=== PATIENT | female | born 1960 | race Caucasian/White ===

== ENCOUNTER → 2017-06-03 | Outpatient (CLI) | payer OTHER | END | disposition home or self-care (01) | LOC: PCVCIMAG 11:36 | DX: K21.9 Gastro-esophageal reflux disease without esophagitis (principal); R06.09 Other forms of dyspnea; E78.5 Hyperlipidemia, unspecified; I71.03 Dissection of thoracoabdominal aorta; Z79.899 Other long term (current) drug therapy; Z79.82 Long term (current) use of aspirin; Z87.891 Personal history of nicotine dependence | CPT/HCPCS: 80061; 93005; 93325; 93351; G0463 ==

== ENCOUNTER → 2017-09-02 | Outpatient (CLI) | payer OTHER | END | disposition home or self-care (01) | LOC: PCVCIMAG 14:07 | DX: I08.3 Combined rheumatic disorders of mitral, aortic and tricuspid valves (principal); I10 Essential (primary) hypertension; E78.5 Hyperlipidemia, unspecified; Z98.890 Other specified postprocedural states; Z86.79 Personal history of other diseases of the circulatory system; Z79.899 Other long term (current) drug therapy; Z79.82 Long term (current) use of aspirin; Z87.891 Personal history of nicotine dependence | CPT/HCPCS: 36415; 93005; 93306; G0463 ==

== ENCOUNTER → 2018-12-01 | Outpatient (CLI) | payer OTHER ==
--- NOTE | 2018-12-01 09:49 | PCVCIMAG ---
APPROVED REPORT Study performed: 12/01/2018 08:25:17 EXAM: Comprehensive 2D, Doppler, and color-flow Echocardiogram Patient Location: Echo lab Status: routine BSA: 1.90 HR: 68 bpmBP: 150/62 mmHg Rhythm: NSR Other Information Study Quality: Adequate Indications aortic insufficiency, hx aortic dissection repair, mitral regurgitation 2D Dimensions IVSd: 11.06 (7-11mm) LVDd: 46.97 mm PWd: 9.77 (7-11mm)Ascending Ao: 40.07 (22-36mm) LVDs: 34.72 (25-40mm) Left Atrium: 38.98 (27-40mm) Aortic Root: 37.27 mm LV Single Plane 4CH: 66.64 % LV Single Plane 2CH: 63.74 % Biplane EF: 66.2 % Volumes Left Atrial Volume (Systole) Single Plane 4CH: 77.60 mLSingle Plane 2CH: 94.72 mL LA ESV Index: 45.00 mL/m2 Aortic Valve AoV Peak Rupesh.: 2.14 m/s AO Peak Gr.: 18.35 mmHgLVOT Max P.61 mmHg LVOT Max V: 1.07 m/s AI Vmax: 5.07 m/s AI [place]: 4.39 m/s2 AI PHT: 335.75 ms Mitral Valve E/A Ratio: 0.8 MV Decel. Time: 243.95 ms MV E Max Rupesh.: 0.50 m/s MV A Rupesh.: 0.64 m/s IVRT: 141.87 ms Pulmonary Valve PV Peak Rupesh.: 0.89 m/sPV Peak Gr.: 3.14 mmHg Pulmonary Vein P Vein S: 0.37 m/sP Vein A: 0.71 m/s P Vein D: 0.60 m/sP Vein A Dur.: 173.0 msec P Vein S/D Ratio: 0.62 Tricuspid Valve TR Peak Rupesh.: 2.75 m/s TR Peak Gr.: 30.25 mmHg TV Vmax: 0.44 m/s Left Ventricle The left ventricle is normal size. There is normal LV segmental wall motion. There is normal left ventricular wall thickness. Left ventricular systolic function is normal. The left ventricular ejection fraction is within the normal range. LVEF is 60-65%. Grade I - abnormal relaxation pattern. Right Ventricle The right ventricle is normal size. The right ventricular systolic function is normal. Atria Left atrium is moderately dilated. The right atrium size is normal. Aortic Valve The aortic valve is normal in structure. Moderate aortic regurgitation. There is no aortic valvular stenosis. Mitral Valve The mitral valve is normal in structure. Mild mitral regurgitation. No evidence of mitral valve stenosis. Tricuspid Valve The tricuspid valve is normal in structure. Mild tricuspid regurgitation with PAP of 37 mmHg. Pulmonic Valve The pulmonary valve is normal in structure. There is mild pulmonic valvular regurgitation. Great Vessels The aortic root is normal in size. The ascending aorta is borderline dilated to 4.0 cm. IVC is normal in size and collapses >50% with inspiration. Pericardium There is no pericardial effusion. There is no pleural effusion. <Conclusion> The left ventricle is normal size. There is normal left ventricular wall thickness. Left ventricular systolic function is normal. Grade I - abnormal relaxation pattern. The right ventricle is normal size. Left atrium is moderately dilated. The right atrium size is normal. The aortic valve is normal in structure. Moderate aortic regurgitation. Mild mitral regurgitation. Mild tricuspid regurgitation with PAP of 37 mmHg. The ascending aorta is borderline dilated to 4.0 cm.
== END | disposition home or self-care (01) ==
LOC: PCVCIMAG 08:43
PROVIDERS: ATTEND Internal Medicine Cardiovascular Disease
DX: I08.3 Combined rheumatic disorders of mitral, aortic and tricuspid valves (principal); I10 Essential (primary) hypertension; Z98.890 Other specified postprocedural states; Z86.79 Personal history of other diseases of the circulatory system
CPT/HCPCS: 93306